=== PATIENT | female | born 2000 | race Two or more races ===

== ENCOUNTER 2019-07-31 16:43 | Emergency (ER) | payer BC ==
--- NOTE | 2019-07-31 17:14 | ER Document Report ---
ED Medical Screen (RME) - General Chief Complaint: Abdominal Pain Stated Complaint: ABDOMINAL PAIN Time Seen by Provider: 07/31/19 17:08 Notes: Patient is a 18-year-old female who presents to the emergency department with a chief complaint of pelvic pain. Patient states that she had an IUD placed 2 years ago in [place] and states that she has had some cramping ever since. Denies any unusual bleeding. States that she spots irregularly. Last time she had some spotting was about a month ago. Patient is sexually active. Denies any past medical history. Does not take any medications. Denies any vaginal discharge. Exam: Soft, mildly tender mid lower abdomen. I have greeted and performed a rapid initial assessment of this patient. A comprehensive ED assessment and evaluation of the patient, analysis of test results and completion of medical decision making process will be conducted by an additional ED providers. - Related Data Allergies/Adverse Reactions: No Known Allergies Allergy (Unverified 07/31/19 17:09) Past Medical History - Social History Chew tobacco use (# tins/day): No Frequency of alcohol use: None Drug Abuse: None Physical Exam - Vital signs Vitals: Temp Pulse Resp BP Pulse Ox 99.1 F 83 16 109/71 95 07/31/19 16:48 07/31/19 16:48 07/31/19 16:48 07/31/19 16:48 07/31/19 16:48 Course - Vital Signs Vital signs: Temp Pulse Resp BP Pulse Ox 99.1 F 83 16 109/71 95 07/31/19 16:48 07/31/19 16:48 07/31/19 16:48 07/31/19 16:48 07/31/19 16:48
[2019-07-31 17:52] LABS: ABSOLUTE EOSINOPHILS # (AUTO) 0.1 10^3/uL (0.0-0.6); ABSOLUTE LYMPHOCYTES (AUTO) 2.2 10^3/uL (0.5-4.7); ABSOLUTE MONOCYTES (AUTO) 0.6 10^3/uL (0.1-1.4); ABSOLUTE NEUT (AUTO) 3.4 10^3/uL (1.7-8.2); BASOPHILS % (AUTO) 0.6 % (0-2); EOSINOPHILS % (AUTO) 1.8 % (0-6); HEMATOCRIT 43.5 % (36.0-47.0); HEMOGLOBIN 15.2 g/dL (12.0-15.5); LYMPHOCYTES % (AUTO) 34.5 % (13-45); MEAN CORPUSCULAR HEMOGLOBIN 32.6 pg (27.0-33.4); MEAN CORPUSCULAR VOLUME 93 fl (80-97); MONOCYTES % (AUTO) 9.5 % (3-13); PLATELET COUNT 213 10^3/uL (150-450); RED BLOOD COUNT 4.67 10^6/uL (3.72-5.28); SEGMENTED NEUTROPHILS % (AUTO) 53.6 % (42-78); TOTAL CELLS COUNTED % (AUTO) 100 %; WHITE BLOOD COUNT 6.3 10^3/uL (4.0-10.5)
[2019-07-31 17:54] LABS: AMORPHOUS SEDIMENT,URINE TRACE /HPF; APPEARANCE,URINE CLOUDY; BILIRUBIN,URINE NEGATIVE (NEGATIVE); COLOR,URINE YELLOW; GLUCOSE, URINE NEGATIVE (NEGATIVE); KETONES,URINE NEGATIVE (NEGATIVE); LEUKOCYTE ESTERASE,URINE NEGATIVE (NEGATIVE); NITRITE,URINE NEGATIVE (NEGATIVE); PROTEIN,URINE 30 mg/dL (NEGATIVE); URINE SPECIFIC GRAVITY 1.024
[2019-07-31 19:01] LABS: ALBUMIN 4.5 g/dL (3.7-5.6); ALKALINE PHOSPHATASE 92 U/L (50-135); ANION GAP 9 (5-19); ASPARTATE AMINO TRANSFERASE 28 U/L (5-30); BILIRUBIN,DIRECT 0.1 mg/dL (0.0-0.4); BILIRUBIN,TOTAL 1.8 mg/dL (0.2-1.3); BLOOD UREA NITROGEN 11 mg/dL (7-20); CALCIUM 9.6 mg/dL (8.4-10.2); CARBON DIOXIDE 25 mmol/L (22-30); CHLORIDE 102 mmol/L (98-107); GLUCOSE 100 mg/dL (75-110); POTASSIUM 4.3 mmol/L (3.6-5.0); TOTAL PROTEIN 7.8 g/dL (6.3-8.2)
--- NOTE | 2019-07-31 19:52 | RADIOLOGY REPORT (SQ) ---
EXAM DESCRIPTION: U/S NON OB PEL TV W/DOPPLER IMAGES COMPLETED DATE/TIME: 07/31/2019 7:37 pm REASON FOR STUDY: pelvic pain; IUD in place irregular menses COMPARISON: None. TECHNIQUE: Dynamic and static grayscale images acquired of the pelvis via transvaginal approach and recorded on PACS. Additional selected color Doppler and spectral images recorded. LIMITATIONS: None. FINDINGS: UTERUS: Contour normal. No mass. ENDOMETRIAL STRIPE: IUD is present CERVIX: 2.6 cm. RIGHT OVARY AND DOPPLER: Normal size. No worrisome masses. 2.9 x 2.5 x 3.6 cm cyst. Normal arterial vascular flow without evidence for torsion. LEFT OVARY AND DOPPLER: Ovary not seen. FREE FLUID: None noted. OTHER: No other significant finding. MEASUREMENTS: UTERUS: 8.8 x 3.6 x 4.7 cm. ENDOMETRIAL STRIPE: 5 mm. RIGHT OVARY: 4.6 x 2.9 x 4.3 cm. LEFT OVARY: Ovary not seen. IMPRESSION: 3.6 cm right ovarian cyst is almost certainly benign. No additional follow-up is recomm ended for this. IUD is in place. TECHNICAL DOCUMENTATION: JOB ID: [id number] 2010 [employer]- All Rights Reserved Rev-06/28 Reading location - IP/workstation name: [email or web address]
[2019-07-31] MEDS ORDERED: IBUPROFEN 600 MG TABLET PO ONE (21:30)
--- NOTE | 2019-07-31 22:23 | ER Document Report ---
Entered by ADARSH MUNOZ SCRIBE 07/31/19 2133 Acting as scribe for:RACHEL MITCHELL IV, MD ED GI/ - General Chief Complaint: Abdominal Pain Stated Complaint: ABDOMINAL PAIN Time Seen by Provider: 07/31/19 17:08 Mode of Arrival: Ambulatory Information source: Patient Notes: This 18 year old female patient with no significant past medical history presents to the ED today with complaints of pelvic pain. Patient states that she got an IUD x2 years ago and has been having pain since, more severe within the last year. Denies vaginal discharge, nausea, vomiting, diarrhea, or constipation. Denies any abdominal surgeries. - Related Data Allergies/Adverse Reactions: No Known Allergies Allergy (Unverified 07/31/19 17:09) Past Medical History - General Information source: Patient - Social History Smoking Status: Never Smoker Cigarette use (# per day): No Chew tobacco use (# tins/day): No Smoking Education Provided: No Frequency of alcohol use: None Drug Abuse: None Family History: Reviewed & Not Pertinent Patient has suicidal ideation: No Patient has homicidal ideation: No Review of Systems - Review of Systems Constitutional: No symptoms reported EENT: No symptoms reported Cardiovascular: No symptoms reported Respiratory: No symptoms reported Gastrointestinal: See HPI, Abdominal pain. denies: Diarrhea, Nausea, Vomiting, Constipation Genitourinary: No symptoms reported Female Genitourinary: See HPI. denies: Vaginal discharge Musculoskeletal: No symptoms reported Skin: No symptoms reported Hematologic/Lymphatic: No symptoms reported Neurological/Psychological: No symptoms reported -: Yes All other systems reviewed and negative Physical Exam - Vital signs Vitals: Temp Pulse Resp BP Pulse Ox 99.1 F 83 16 109/71 95 07/31/19 16:48 07/31/19 16:48 07/31/19 16:48 07/31/19 16:48 07/31/19 16:48 Interpretation: Normal - General General appearance: Appears well, Alert In distress: None - HEENT Head: Normocephalic, Atraumatic Eyes: Normal Pupils: PERRL - Respiratory Respiratory status: No respiratory distress Chest status: Nontender Breath sounds: Normal Chest palpation: Normal - Cardiovascular Rhythm: Regular Heart sounds: Normal auscultation Murmur: No Friction rub: No Gallop: None auscultated - Abdominal Inspection: Normal Distension: No distension Bowel sounds: Normal Tenderness: Tender - Mild tenderness to palpation over pelvic region Organomegaly: No organomegaly - Back Back: Normal, Nontender - Extremities General upper extremity: Normal inspection General lower extremity: Normal inspection - Neurological Neuro grossly intact: Yes Orientation: AAOx4 - Psychological Associated symptoms: Normal affect, Normal mood - Skin Skin Temperature: Warm Skin Moisture: Dry Skin Color: Normal Course - Re-evaluation Re-evalutation: 07/31/19 22:19 Results of ED MSE discussed with patient. All questions were answered prior to discharge. Emergency signs and symptoms, reasons to return to the emergency department discussed with patient. Occult reasons for pelvic pain not visualized on ultrasound also discussed with patient and that if she feels she is doing worse needs to return a CT of the abdomen and pelvis may need to be done. - Vital Signs Vital signs: Temp Pulse Resp BP Pulse Ox 99.1 F 83 16 109/71 95 07/31/19 16:48 07/31/19 16:48 07/31/19 16:48 07/31/19 16:48 07/31/19 16:48 - Laboratory Result Diagrams: 07/31/19 17:37 07/31/19 17:37 Laboratory results interpreted by me: 07/31/19 07/31/19 17:37 17:37 Sodium 136.1 L Total Bilirubin 1.8 H Urine Protein 30 H Urine Urobilinogen 2.0 H - Diagnostic Test Radiology reviewed: Reports reviewed Discharge - Discharge Clinical Impression: Pelvic pain Ovarian cyst Qualifiers: Laterality: right Qualified Code(s): N83.201 - Unspecified ovarian cyst, right side Condition: Good Disposition: HOME, SELF-CARE Instructions: Abdominal Pain ([facility]) Additional Instructions: Return to the Emergency Department without delay if any worse. HOME CARE INSTRUCTIONS & INFORMATION: Thank you for choosing us for your medical needs. We hope you're satisfied with the care you received. After you leave, you must properly care for your problem and, at the same time, observe its progress. Any condition can change. Some illnesses can change rapidly over hours or days. If your condition worsens, return to the Emergency Department or see your physician promptly. ABOUT YOUR X-RAYS AND EKG'S: If you had an EKG or X-rays taken, they have been read by the Emergency Physician. The X-rays and EKG's will also be read by a Radiologist or Plumbing Assembler within 24 hours. If discrepancies are noted, you will be notified by telephone. Please be certain the ED has a correct telephone number & address where you can be reached. Also, realize that some fractures or abnormalities do not show up on initial X-rays. If your symptoms continue, see your physician. ABOUT YOUR LABORATORY TEST: If you had laboratory tests, the results have been reviewed by the Emergency Physician. Some test results (for example cultures) may not be available for several days. You will be contacted if any test result shows you need additional treatment. Please be certain the ED has a correct telephone number and address where you can be reached. ABOUT YOUR MEDICATIONS: You will receive instructions on how to take your medicine on the prescription label you receive. Additional information may be provided by the Pharmacy. If you have questions afterwards, call the ED for clarification or further instructions. Some prescribed medications may cause drowsiness. Do not perform tasks such as driving a car or operating machinery without consulting your Pharmacist. If you feel you need a refill of pain medication, your condition will need re-evaluation. Please do not call for a refill of any medication. ABOUT YOUR SIGNATURE: Signature of this document acknowledges to followin. Understanding that you received emergency treatment and that you may be released before al medical problems are known or treated. Please be certain the ED has a correct phone number & address where you can be reached. 2. Acknowledgement that you will arrange for follow-up care as recommended. 3. Authorization for the Emergency Physician to provide information to your follow-up Physician in order to maximize your care. AT ANY TIME, IF YOUR SYMPTOMS CHANGE SIGNIFICANTLY OR WORSEN OR YOU DEVELOP NEW SYMPTOMS, RETURN TO THE EMERGENCY DEPARTMENT IMMEDIATELY FOR RE-EVALUATION. OUR GOAL IS TO PROVIDE EXCELLENT MEDICAL CARE! WE HOPE THAT WE HAVE MET YOUR EXPECTATIONS DURING YOUR EMERGENCY DEPARTMENT V ISIT AND THAT YOU FEEL YOU HAVE RECEIVED EXCELLENT CARE! Ovarian Cyst Your examination shows the presence of an ovarian cyst. This is a ball of fluid attached to the ovary. Ovarian cysts in women of child-bearing age are usually innocent. However, the cyst may cause pain when it grows or bursts. An innocent ovarian cyst will usually go away by itself. When the cyst becomes painful, you should rest. Pain medication may be required. Some women find a hot water bottle soothing. The pain usually resolves within one or two days. After menopause, an ovarian cyst may mean a tumor, and requires more aggressive evaluation -- usually surgery is recommended to remove or biopsy the cyst. A very large cyst requires evaluation at any age. Most cysts (even the innocent ones) require follow-up examination. Call the doctor or return at any time if the pain increases significantly, if you become faint, or if you experience vaginal bleeding. Pelvic Pain There are many causes of pain in the pelvic area. The cause could be the tubes, ovaries, uterus, intestines, appendix, pelvic muscles and connective tissue, or the urinary tract. The cause of your pelvic pain is not clear. However, it seems safe to treat you outside the hospital. If the pain sounds like a temporary problem, we sometimes wait to see if it goes away. Other patients may need additional tests, such as pelvic ultrasound or cultures. Conditions may change. Call us or come back for reexamination if any problems occur, such as: (1) Pain that becomes more severe, steady, or becomes concentrated in one specific area. Also, pain that is more severe with movement or coughing. (2) Vomiting that persists or becomes more frequent. (3) Blood in the vomitus, urine, or bowel movements. Blood in the stool may have a tarry or black appearance. (4) Shaking chills or fever greater than 100 degrees. (5) The abdomen becomes more distended or swollen. (6) Bowel movements cease. (7) Heavy vaginal bleeding. Referrals: TITA ELENA MD [ACTIVE STAFF] - 08/03/19 I personally performed the services described in the documentation, reviewed and edited the documentation which was dictated to the scribe in my presence, and it accurately records my words and actions.
[2019-07-31 23:33] VITALS: BP 106/69
== END 2019-07-31 23:10 | disposition home or self-care (01) ==
LOC: ER 16:43
DX: N83.201 Unspecified ovarian cyst, right side (principal); R10.9 Unspecified abdominal pain; R10.2 Pelvic and perineal pain
CPT/HCPCS: 36415; 76830; 80053; 81001; 81025; 85025; 93976; 99284